=== PATIENT | female | born 1990 | race Caucasian/White ===

== ENCOUNTER 2019-01-20 23:57 | Emergency (ER) | payer MEDICAID ==
[~2019-01-20] VITALS: Ht 152.4 cm; Wt 38.5 kg
[2019-01-21 00:08] VITALS: BP 127/77
[2019-01-21] MEDS ORDERED: LIDOCAINE-MPF 1%, 5ML INFIL ONE (00:30)
[2019-01-21] MEDS ORDERED: CEPHALEXIN 500 MG CAPSULE PO ONE (00:30)
[2019-01-21] MEDS ORDERED: SULFAMETH./TRIMETHOPRIM DS 800MG/160MG TABLET PO ONE (00:30)
[2019-01-21] MEDS ORDERED: CEPHALEXIN 500 MG CAPSULE ONE (00:45)
[2019-01-21] MEDS ORDERED: LIDOCAINE-MPF 1%, 5ML ONE (00:46)
[2019-01-21] MEDS ORDERED: SULFAMETH./TRIMETHOPRIM DS 800MG/160MG TABLET ONE (00:46)
== END 2019-01-21 01:43 | disposition home or self-care (01) ==
LOC: ED 01-21 01:32
DX: L02.413 Cutaneous abscess of right upper limb (principal)
CPT/HCPCS: 10060; 99283

== ENCOUNTER 2019-06-11 08:07 | Emergency (ER) | payer MEDICAID ==
[~2019-06-11] VITALS: Ht 152.4 cm; Wt 40.1 kg
[2019-06-11 08:12] VITALS: BP 127/68
--- NOTE | 2019-06-11 09:15 | NUR ---
FIRST CONTACT WITH PT. PT HAS ABSCESS ON LEFT UPPER ARM. PRESENT 3 WEEKS- IV HEROIN USE. PT'S AOX4. RESPS EVEN AND UNLABORED.
[2019-06-11] MEDS ORDERED: LIDOCAINE-MPF 1%, 2ML ONE (09:22)
[2019-06-11] MEDS ORDERED: LIDOCAINE-MPF 1%, 5ML INFIL ONE (09:30)
--- NOTE | 2019-06-11 09:45 | NUR ---
Patient given discharge instructions and they have confirmed that they understand the instructions. Patient ambulatory with steady gait.
== END 2019-06-11 09:46 | disposition home or self-care (01) ==
LOC: ED 09:30
DX: L02.414 Cutaneous abscess of left upper limb (principal); F17.210 Nicotine dependence, cigarettes, uncomplicated
CPT/HCPCS: 10060; 99283

== ENCOUNTER 2019-06-13 18:59 | Emergency (ER) | payer MEDICAID ==
[~2019-06-13] VITALS: Ht 152.4 cm; Wt 40.5 kg
[2019-06-13 19:02] VITALS: BP 131/73
[2019-06-13] MEDS ORDERED: LIDOCAINE-MPF 1%, 5ML ONE (19:25)
--- NOTE | 2019-06-13 19:51 | NUR ---
REPORT TO FABIÁN SAMAYOA
--- NOTE | 2019-06-13 20:47 | NUR ---
Patient given discharge instructions and they have confirmed that they understand the instructions. Patient ambulatory with steady gait.
== END 2019-06-13 20:48 | disposition home or self-care (01) ==
LOC: ED 19:17
DX: L02.414 Cutaneous abscess of left upper limb (principal); L02.413 Cutaneous abscess of right upper limb
CPT/HCPCS: 10061; 99284

== ENCOUNTER 2019-06-16 14:56 | Emergency (ER) | payer MEDICAID ==
[~2019-06-16] VITALS: Ht 152.4 cm; Wt 40.5 kg
[2019-06-16 15:20] VITALS: BP 124/73
--- NOTE | 2019-06-16 15:45 | NUR ---
Patient given discharge instructions and they have confirmed that they understand the instructions. Patient ambulatory with steady gait.
== END 2019-06-16 15:46 | disposition home or self-care (01) ==
LOC: ED 15:40
DX: Z48.01 Encounter for change or removal of surgical wound dressing (principal)
CPT/HCPCS: 99283

== ENCOUNTER 2019-06-19 18:50 | Emergency (ER) | payer MEDICAID ==
[~2019-06-19] VITALS: Ht 152.4 cm; Wt 39.0 kg
[2019-06-19 18:55] VITALS: BP 104/61
== END 2019-06-19 19:52 | disposition home or self-care (01) ==
LOC: ED 19:39
DX: Z48.01 Encounter for change or removal of surgical wound dressing (principal); F17.200 Nicotine dependence, unspecified, uncomplicated
CPT/HCPCS: 99283

== ENCOUNTER 2019-08-07 20:13 | Emergency (ER) | payer MEDICAID ==
[~2019-08-07] VITALS: Ht 153.7 cm; Wt 41.4 kg
[2019-08-07 20:17] VITALS: BP 112/43
[2019-08-07] MEDS ORDERED: IBUPROFEN 200 MG TABLET ONE (20:54)
[2019-08-07] MEDS ORDERED: IBUPROFEN 200 MG TABLET PO ONE (21:00)
--- NOTE | 2019-08-07 21:17 | NUR ---
Patient/Caregiver given discharge instructions and they have confirmed that they understand the instructions. Patient ambulatory with steady gait.
== END 2019-08-07 21:23 | disposition home or self-care (01) ==
LOC: ED 21:00
DX: K08.89 Other specified disorders of teeth and supporting structures (principal); F17.210 Nicotine dependence, cigarettes, uncomplicated
CPT/HCPCS: 99283